=== PATIENT | male | born 1945 | race Caucasian/White ===

== ENCOUNTER 2019-01-25 12:10 | Outpatient (CLI) | payer MEDICARE ==
--- NOTE | 2019-01-25 17:27 | RAD ---
CERVICAL SPINE THREE VIEWS: 01/25/19 Diffuse degenerative change is present, particularly at the C4 level and below. Disc space narrowing is prominent at C4-C5, C5-C6, and C6-C7. Osteophytes are seen anteriorly and posteriorly. No fracture or dislocation was seen. The soft tissues show no swelling. 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 CT or MRI could be useful. IMPRESSION: Diffuse moderately severe cervical spondylosis, particularly at C4 and below. POS: HOME
== END 2019-01-25 12:11 | disposition home or self-care (01) ==
LOC: BURRAD 12:10
PROVIDERS: ATTEND Family Medicine
DX: M54.2 Cervicalgia (principal); M47.812 Spondylosis without myelopathy or radiculopathy, cervical region
CPT/HCPCS: 72040